=== PATIENT | female | born 1935 | race Caucasian/White ===

== ENCOUNTER 2017-10-29 09:51 | Outpatient (CLI) | payer MEDICARE | END 2017-10-29 09:52 | disposition home or self-care (01) | LOC: BICMAMMO 09:51 | PROVIDERS: ATTEND Internal Medicine Hematology & Oncology | DX: M81.0 Age-related osteoporosis without current pathological fracture (principal); M85.80 Other specified disorders of bone density and structure, unspecified site; Z85.3 Personal history of malignant neoplasm of breast | CPT/HCPCS: 77066; 77080; G0279 ==

== ENCOUNTER 2017-12-22 08:07 | Outpatient (CLI) | payer MEDICARE ==
[~2017-12-22 08:07] MED LIST: ISOVUE-370 76%-LOCM 1 ML ONE
== END 2017-12-22 08:08 | disposition home or self-care (01) ==
LOC: BICCT 08:07
PROVIDERS: ATTEND Internal Medicine Hematology & Oncology
DX: R51 Headache (principal); R42 Dizziness and giddiness; C50.919 Malignant neoplasm of unspecified site of unspecified female breast
CPT/HCPCS: 70470; 82565

== ENCOUNTER 2018-10-31 08:30 | Outpatient (CLI) | payer MEDICARE ==
--- NOTE | 2018-10-31 09:38 | MMO ---
Bilateral MAMMO Bilat Screen [facility]. CLINICAL HISTORY: Patient is 82 years old and is seen for screening. The patient has no family history of breast cancer. The patient has a history of malignant (generic) in the right breast 2012. 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 VIEWS: The views performed were: bilateral craniocaudal with tomosynthesis and bilateral mediolateral oblique with tomosynthesis. FILMS COMPARED: The present examination has been compared to prior imaging studies performed at [facility] on 04/23/2015, 10/25/2015, 10/27/2016 and 10/29/2017. MAMMOGRAM FINDINGS: There are scattered fibroglandular densities. Finding 1: There is an area of architectural distortion, a biopsy clip and a post operative change seen in the right breast. Finding 2: There are benign appearing and vascular calcifications seen in both breasts. There are no suspicious masses, suspicious calcifications, or new areas of architectural distortion. IMPRESSION: THERE IS NO MAMMOGRAPHIC EVIDENCE OF MALIGNANCY. A ROUTINE FOLLOW-UP MAMMOGRAM IN 1 YEAR IS RECOMMENDED. THE RESULTS OF THIS EXAM WERE SENT TO THE PATIENT. ACR BI-RADS Category 2 - Benign finding MAMMOGRAPHY NOTE: 1. A negative mammogram report should not delay a biopsy if a dominant of clinically suspicious mass is present. 2. Approximately 10% to 15% of breast cancers are not detected by mammography. 3. Adenosis and dense breasts may obscure an underlying neoplasm. Reported by: LIZZY MEYERS MD Electonically Signed: [id number]
--- NOTE | 2018-10-31 11:24 | BD ---
DEXA BONE DENSITOMETRY: (Dual energy x-ray absorptiometry) DATE: 10/31/2018 HISTORY: 82-year old white female for age-related, post-menopausal, osteoporosis screening. weight: 148 lbs height: 60 in. Age of menopause: 51 COMPARISON: Most recent previous: 10/27/2016. Baseline:07/10/2013 FINDINGS: The bone mineral density (BMD) is given in grams per square centimeter (g/cm2): LUMBAR SPINE: BMD (g/cm^2) T score Z score L1: 1.127 1.2 3.7 L2: 0.998 -0.3 2.4 L3: 0.997 -0.8 2.1 L4: 1.163 0.9 3.9 Total: 1.078 0.3 3.0 Change in BMD compared to most recent previous DEXA: +8.1 %. Change in BMD compared to baseline DEXA: +10.1 %. HIP: BMD (g/cm^2) T score Z score Femoral neck: 0.564 -2.6 -0.2 Total: 0.872 -0.6 1.6 Change in BMD compared to most recent previous DEXA: +6.4 %. Change in BMD compared to baseline DEXA: +4.4 %. IMPRESSION: 1.) The mean bone mineral density of the lumbar spine is normal. Fracture risk is not increased. 2) The bone mineral density of the femoral neck is osteoporotic. Fracture risk is high.
== END 2018-10-31 08:31 | disposition home or self-care (01) ==
LOC: BICMAMMO 08:30
PROVIDERS: ATTEND Internal Medicine Hematology & Oncology
DX: Z12.31 Encounter for screening mammogram for malignant neoplasm of breast (principal); Z13.820 Encounter for screening for osteoporosis; M81.0 Age-related osteoporosis without current pathological fracture; T38.905 Adverse effect of unspecified hormone antagonists; Z85.3 Personal history of malignant neoplasm of breast
CPT/HCPCS: 77063; 77067; 77080

== ENCOUNTER 2019-11-02 09:31 | Outpatient (CLI) | payer MEDICARE ==
--- NOTE | 2019-11-02 10:18 | BD ---
EXAM: DEXA bone density examination HISTORY: 83-year-old postmenopausal female for screening COMPARISON: 10/31/2018 FINDINGS: L1--bone mineral density 1.125 g/sq cm; T score 1.2 L2--bone mineral density 1.069 g/sq cm; T score 0.4 L3--bone mineral density 1.064 g/sq cm; T score -0.2 L4--bone mineral density 1.243 g/sq cm; T score 1.7 Total L1-L4--bone mineral density 1.133 g/sq cm; T score 0.8 Left femoral neck--bone mineral density0.586; T score -2.4 Total proximal left femur--bone mineral density 0.834; T score -0.9 IMPRESSION: Osteopenia. This patient has a 10 year WHO fracture risk of a major osteoporotic fracture of 24% and of a hip fracture of 7.7%. When compared to the prior examination, the bone density in the spine has increased approximately 5% and the bone density in the hip has decreased approximately 4%.
--- NOTE | 2019-11-02 11:44 | MMO ---
Bilateral MAMMO Bilat Screen [facility]. CLINICAL HISTORY: Patient is 83 years old and is seen for screening. The patient has no family history of breast cancer. The patient has a history of malignant (generic) in the right breast 2012. 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 VIEWS: The views performed were: bilateral craniocaudal with tomosynthesis and bilateral mediolateral oblique with tomosynthesis. FILMS COMPARED: The present examination has been compared to prior imaging studies performed at [facility] on 10/25/2015, 10/27/2016, 10/29/2017 and 10/31/2018. This study has been interpreted with the assistance of computer-aided detection. MAMMOGRAM FINDINGS: There are scattered fibroglandular densities. Benign calcifications are noted bilaterally. There are stable right post-operative changes. Right biopsy clip. There are no suspicious masses, suspicious calcifications, or new areas of architectural distortion. IMPRESSION: THERE IS NO MAMMOGRAPHIC EVIDENCE OF MALIGNANCY. A ROUTINE FOLLOW-UP MAMMOGRAM IN 1 YEAR IS RECOMMENDED. THE RESULTS OF THIS EXAM WERE SENT TO THE PATIENT. ACR BI-RADS Category 2 - Benign finding MAMMOGRAPHY NOTE: 1. A negative mammogram report should not delay a biopsy if a dominant of clinically suspicious mass is present. 2. Approximately 10% to 15% of breast cancers are not detected by mammography. 3. Adenosis and dense breasts may obscure an underlying neoplasm. Reported by: DANA MERCADO MD Electonically Signed: [id number]
== END 2019-11-02 09:32 | disposition home or self-care (01) ==
LOC: BICMAMMO 09:31
PROVIDERS: ATTEND Internal Medicine Hematology & Oncology
DX: Z12.31 Encounter for screening mammogram for malignant neoplasm of breast (principal); M81.0 Age-related osteoporosis without current pathological fracture; N95.9 Unspecified menopausal and perimenopausal disorder; Z85.3 Personal history of malignant neoplasm of breast; M85.80 Other specified disorders of bone density and structure, unspecified site
CPT/HCPCS: 77063; 77067; 77080

== ENCOUNTER 2021-11-07 10:39 | Outpatient (CLI) | payer MEDICARE | END 2021-11-07 10:40 | disposition home or self-care (01) | LOC: BICMAMMO 10:39 | PROVIDERS: ATTEND Internal Medicine Hematology & Oncology | DX: Z12.31 Encounter for screening mammogram for malignant neoplasm of breast (principal); M85.851 Other specified disorders of bone density and structure, right thigh; M85.852 Other specified disorders of bone density and structure, left thigh; Z85.3 Personal history of malignant neoplasm of breast; Z98.890 Other specified postprocedural states | CPT/HCPCS: 77063; 77067; 77080 ==

== ENCOUNTER 2022-01-25 12:09 | Inpatient (IN) | payer MEDICARE ==
[2022-01-25 12:49] LABS: #Basophils 0.1 thou/uL (0.0-0.2); #Eosinphils 0.1 thou/uL (0.0-0.7); #Monocytes 0.8 thou/uL (0.11-0.59); #Neutrophils 6.6 thou/uL (1.40-6.50); %Basophils 0.8 % (0.0-1.0); %Eosinophils 1.5 % (0.0-10.0); %Lymphocytes 20.8 % (21.0-51.0); Hemoglobin 13.6 g/dL (12.0-16.0); Mean Corpuscular HGB CONC 32.9 g/dL (32.0-36.0); Mean Corpuscular Hemoglobin 30.8 pg (27.0-31.0); Mean Corpuscular Volume 93.4 fL (78.0-98.0); Mean Platelet Volume 9.2 fL (7.4-10.4); Platelet Count 178 thou/uL (130-400); RBC Distribution Width 11.9 % (11.5-14.5); Red Blood Cell (RBC) Count 4.41 mill/uL (4.20-5.40); White Blood Cell (WBC) Count 9.5 thou/uL (4.8-10.8)
[2022-01-25 13:14] LABS: ALT (SGPT) 13 U/L (8-55); AST (SGOT) 18 U/L (5-34); Albumin 3.7 g/dL (3.4-4.8); Alkaline Phosphatase 71 U/L (40-110); Anion Gap 15 mmol/L (10-20); BUN (Urea Nitrogen) 8 mg/dL (9.8-20.1); Bilirubin, Total 0.4 mg/dL (0.2-1.2); CK (CPK) 82 U/L (29-168); Calc. Creatinine Clearance 0 mL/min (70-130); Calcium 8.9 mg/dL (7.8-10.44); Carbon Dioxide 19 mmol/L (23-31); Chloride 105 mmol/L (98-107); Estimated GFR 78; Globulin 2.9 g/dL (2.4-3.5); Glucose 108 mg/dL (83-110); Lipase 20 U/L (8-78); Magnesium 2.2 mg/dL (1.6-2.6); Potassium 3.8 mmol/L (3.5-5.1); Protein, Total 6.6 g/dL (5.8-8.1); Sodium 135 mmol/L (136-145)
[2022-01-25 14:02] LABS: Bacteria/HPF 1+ HPF (None Seen); Bilirubin Negative (Negative); Blood, Urine Negative (Negative); Clarity Clear (Clear); Glucose, Urine (Dipstick) Normal (Negative); Ketone, Urine Negative (Negative); Leukocyte 75 Leu/uL (Negative); Nitrite Negative (Negative); Protein, Urine (Dipstick) Negative (Neg-Trace); RBC/HPF 0-3 HPF (0-3); Renal Epithelial 0-3 HPF (None Seen); Specific Gravity, Urine 1.007 (1.002-1.036); Squamous Epithelial 0-3 HPF (0-3); Transitional Epithelial 0-3 HPF (None Seen); Urobilinogen Normal mg/dL (Less than 2); WBC/HPF 0-3 HPF (0-3)
[2022-01-25] MEDS ORDERED: Acetaminophen 325 MG TAB PO PRN (14:43)
[2022-01-25] MEDS ORDERED: hydrALAZINE 20 MG/ML VIAL SLOW IVP PRN (15:16)
[2022-01-25 15:38] VITALS: BMI 25.9
[2022-01-25] MEDS ORDERED: cefTRIAXone\\ROCEPHIN 1 GM in Sodium Chloride 0.9% 100 ML IVPB SCH (16:00)
[2022-01-25 16:15] LABS: Hemoglobin A1c 5.2 % (4.0-6.0)
[2022-01-25 16:24] LABS: Troponin I Less than 0.010 ng/mL (< 0.028)
[2022-01-25 18:59] LABS: Troponin I Less than 0.010 ng/mL (< 0.028)
[2022-01-25] MEDS: Lisinopril 5 MG TAB PO SCH (20:56)
[2022-01-26 05:25] LABS: Anion Gap 10 mmol/L (10-20); BUN (Urea Nitrogen) 7 mg/dL (9.8-20.1); Calc. Creatinine Clearance 57 mL/min (70-130); Calcium 8.8 mg/dL (7.8-10.44); Carbon Dioxide 24 mmol/L (23-31); Cardiac Risk 3.6 (Less than 4.5); Chloride 108 mmol/L (98-107); Cholesterol 231 mg/dl (< 200 Desired); Estimated GFR 85; Glucose 96 mg/dL (83-110); HDL Cholesterol 65 mg/dL (>60 Neg Risk); LDL Cholesterol, Calculated 149 mg/dL; Potassium 3.8 mmol/L (3.5-5.1); Sodium 138 mmol/L (136-145); Triglycerides 86 mg/dL (Less than 150)
[2022-01-26] MEDS ORDERED: LORazepam 2 MG/ML SYRINGE IVP PRN (08:00)
[2022-01-26] MEDS ORDERED: Lorazepam 1 MG TAB PO PRN (08:00)
[2022-01-26] MEDS: Aspirin 81 mg Enteric Coated Tablet PO SCH (10:19)
[2022-01-26] MEDS: Lisinopril 5 MG TAB PO SCH ×2 (10:20→19:43)
[2022-01-26] MEDS: Multivitamin W/ Minerals 1 TAB PO SCH (10:20)
[2022-01-26] MEDS: Calcium Carbonate 600 MG TAB PO SCH (10:20)
[2022-01-26] MEDS: Enoxaparin Sodium 40 MG/0.4 ML SYRINGE SC SCH (10:21)
[2022-01-26] MEDS: Polyethylene Glycol 3350 17 GM Packet PO SCH (10:21)
[2022-01-26] MEDS: Cefdinir 300 MG CAP PO SCH (22:28)
[2022-01-27 04:57] LABS: Anion Gap 13 mmol/L (10-20); BUN (Urea Nitrogen) 12 mg/dL (9.8-20.1); Calc. Creatinine Clearance 54 mL/min (70-130); Calcium 9.3 mg/dL (7.8-10.44); Carbon Dioxide 22 mmol/L (23-31); Chloride 107 mmol/L (98-107); Estimated GFR 81; Glucose 94 mg/dL (83-110); Potassium 4.3 mmol/L (3.5-5.1); Sodium 138 mmol/L (136-145)
[2022-01-27] MEDS ORDERED: Cefdinir 300 MG CAP PO SCH (09:00)
[2022-01-27] MEDS ORDERED: Lorazepam 1 MG TAB PO PRN (09:02)
[2022-01-27] MEDS: Polyethylene Glycol 3350 17 GM Packet PO SCH (09:11)
[2022-01-27] MEDS: Calcium Carbonate 600 MG TAB PO SCH (09:11)
[2022-01-27] MEDS: Enoxaparin Sodium 40 MG/0.4 ML SYRINGE SC SCH (09:11)
[2022-01-27] MEDS: Aspirin 81 mg Enteric Coated Tablet PO SCH (09:12)
[2022-01-27] MEDS: Multivitamin W/ Minerals 1 TAB PO SCH (09:12)
[2022-01-27] MEDS: Lisinopril 5 MG TAB PO SCH (11:10)
[2022-01-27] MEDS: Cefdinir 300 MG CAP PO SCH (11:13)
[2022-01-27 11:17] VITALS: BP 131/60; TEMP 97.5
[2022-01-27] MEDS ORDERED: Regadenoson 0.4 MG/5 ML SYRINGE ONE (13:53)
== END 2022-01-27 14:04 | disposition home or self-care (01) | DRG 313 ==
LOC: ERS 12:09 → 2SW 14:00 → OBSVTOIN 01-27 11:16
PROVIDERS: ADMIT Emergency Medicine; ATTEND Emergency Medicine
DX: R07.89 Other chest pain (principal); N30.00 Acute cystitis without hematuria; K59.00 Constipation, unspecified; I10 Essential (primary) hypertension; E78.5 Hyperlipidemia, unspecified; F41.9 Anxiety disorder, unspecified; K21.9 Gastro-esophageal reflux disease without esophagitis; Z20.822 Contact with and (suspected) exposure to COVID-19; Z92.3 Personal history of irradiation; Z86.73 Personal history of transient ischemic attack (TIA), and cerebral infarction without residual deficits; I25.10 Atherosclerotic heart disease of native coronary artery without angina pectoris; Z88.1 Allergy status to other antibiotic agents; Z88.0 Allergy status to penicillin; Z88.2 Allergy status to sulfonamides; Z79.899 Other long term (current) drug therapy; Z79.82 Long term (current) use of aspirin; Z85.3 Personal history of malignant neoplasm of breast; Z90.11 Acquired absence of right breast and nipple; Z82.49 Family history of ischemic heart disease and other diseases of the circulatory system
CPT/HCPCS: 36415; 71045; 78452; 80048; 80053; 80061; 81003; 81015; 82550; 83036; 83690; 83735; 83880; 84443; 84484; 85025; 87086; 93005; 93017; 94760; 96372; A9500; G0378; J0696; J1650; J2785; J3490; U0003; U0005

== ENCOUNTER 2022-11-09 09:55 | Outpatient (CLI) | payer MEDICARE | END 2022-11-09 09:56 | disposition home or self-care (01) | LOC: BICMAMMO 09:55 | PROVIDERS: ATTEND Internal Medicine Hematology & Oncology | DX: Z12.31 Encounter for screening mammogram for malignant neoplasm of breast (principal); M81.0 Age-related osteoporosis without current pathological fracture; M85.80 Other specified disorders of bone density and structure, unspecified site; T38.905 Adverse effect of unspecified hormone antagonists; Z85.3 Personal history of malignant neoplasm of breast; Z98.890 Other specified postprocedural states | CPT/HCPCS: 77063; 77067; 77080 ==

== ENCOUNTER 2024-11-17 10:14 | Outpatient (CLI) | payer MEDICARE | END 2024-11-17 10:15 | disposition home or self-care (01) | LOC: BICMAMMO 10:14 | PROVIDERS: ATTEND Obstetrics & Gynecology | DX: Z12.31 Encounter for screening mammogram for malignant neoplasm of breast (principal); M81.0 Age-related osteoporosis without current pathological fracture; Z85.3 Personal history of malignant neoplasm of breast; Z98.890 Other specified postprocedural states | CPT/HCPCS: 77063; 77067; 77080 ==